=== PATIENT | female | born 1985 | race Caucasian/White ===

== ENCOUNTER → 2018-10-08 11:04 | Outpatient (CLI) | payer OTHER, SELFPAY ==
--- NOTE | 2018-10-08 | DI.MG.S_ITS ---
BILATERAL DIGITAL SCREENING MAMMOGRAM 3D/2D WITH CAD: 10/08/2018 CLINICAL: Family history of breast cancer. Routine screening. Baseline exam. No prior exams were available for comparison. The tissue of both breasts is extremely dense, which lowers the sensitivity of mammography. Current study was also evaluated with a Computer Aided Detection (CAD) system. No significant masses, calcifications, or other findings are seen in either breast. IMPRESSION: NEGATIVE There is no mammographic evidence of malignancy. A 1 year screening mammogram is recommended. This exam was interpreted at Station ID: [id number]. NOTE: For mammograms, a report in lay terms will be sent to the patient. Approximately 15% of breast malignancies will not be visualized mammographically. In the management of a palpable breast mass, a negative mammogram must not discourage biopsy of a clinically suspicious lesion. Electronically Signed By: Yefri garcia/pamella:10/08/2018 18:46:28 letter sent: Normal Exam ACR BI-RADS Category 1: Negative 3341F
== END ==
PROVIDERS: PCP Internal Medicine; Visit Provider Internal Medicine
DX: Z12.31 Encounter for screening mammogram for malignant neoplasm of breast (principal); Z80.3 Family history of malignant neoplasm of breast
CPT/HCPCS: 77063; 77067

== ENCOUNTER → 2018-12-31 09:07 | Outpatient (CLI) | payer OTHER, SELFPAY ==
[2018-12-31 09:34] LABS: Add Manual Diff / Slide Review NO; Basophils Absolute Auto 0 /uL (0-100); Basophils Percent Auto 0.5 % (0-2); Eosinophils Absolute Auto 200 /uL (0-450); Eosinophils Percent Auto 4.1 % (2-4); Hematocrit 38.4 % (36-46); Hemoglobin 12.9 g/dL (12.0-16.0); Lymphocytes Absolute Auto 1800 /uL (1100-4500); Lymphocytes Percent Auto 30.3 % (25-40); Mean Corpuscular HGB Conc 33.5 % (30-36); Mean Corpuscular Hemoglobin 29.7 PG (26-34); Mean Corpuscular Volume 88.5 fL (80-100); Monocytes Absolute Auto 400 /uL (0-900); Monocytes Percent Auto 6.3 % (3-14); Neutrophils Absolute Auto 3500 /uL (1500-7000); Neutrophils Percent Auto 58.8 % (50-75); Platelet Count 182 X10^3/uL (150-400); Red Blood Cell Count 4.34 X10^6/uL (4.0-5.2); Red Cell Distribution Width 12.9 % (11.6-14.8); White Blood Cell Count 5.9 X10^3/uL (4.5-11.0)
[2018-12-31 10:04] LABS: Alanine Aminotransferase 44 IU/L (9-52); Albumin 4.5 g/dL (3.5-5.0); Albumin Globulin Ratio 1.6 (1.0-2.8); Alkaline Phosphatase 62 U/L (38-126); Aspartate Aminotransferase 36 IU/L (14-36); BUN Creatinine Ratio 21.4 (6-22); Bilirubin Total 1.6 mg/dL (0.2-1.3); Blood Urea Nitrogen 15 mg/dL (7-17); Calcium 9.6 mg/dL (8.4-10.2); Carbon Dioxide 32 mmol/L (22-32); Chloride 100 mmol/L (98-107); Cholesterol 155 mg/dL (140-199); Estimated Glomerular Filt Rate > 60.0 mL/min (>60); Globulin 2.8 g/dL (1.7-4.1); Glucose 93 mg/dL (70-100); HDL Cholesterol 59 mg/dL (40-60); HEMOLYSIS < 15 (0-50); LDL Cholesterol Calculated 86 mg/dL (<100); Potassium 4.3 mmol/L (3.4-5.1); Sodium 139 mmol/L (137-145); Total Protein 7.3 g/dL (6.3-8.2); Triglycerides 48 mg/dL (35-150)
[2018-12-31 10:37] LABS: Ferritin 10.2 ng/mL (6.27-137)
[2018-12-31 10:40] LABS: Free T3, Triiodothyronine Free 3.55 pg/mL (2.77-5.27); Free T4, Direct Thyroxine 0.72 ng/dL (0.78-2.19)
[2018-12-31 10:53] LABS: Thyroid Stimulating Hormone 1.39 uIU/mL (0.47-4.68)
[2019-01-04 14:53] LABS: Thyroid Peroxidase Antibodies 3 IU/mL (< 9)
== END ==
PROVIDERS: PCP Internal Medicine; Visit Provider Naturopath
DX: Z00.00 Encounter for general adult medical examination without abnormal findings (principal); N92.4 Excessive bleeding in the premenopausal period; R53.83 Other fatigue
CPT/HCPCS: 36415; 80053; 80061; 82728; 84439; 84443; 84481; 85025; 86376

== ENCOUNTER → 2019-08-19 09:27 | Outpatient (CLI) | payer OTHER, SELFPAY ==
[2019-08-19 10:27] LABS: Add Manual Diff / Slide Review NO; Basophils Absolute Auto 0 /uL (0-100); Basophils Percent Auto 0.5 % (0-2); Eosinophils Absolute Auto 200 /uL (0-450); Eosinophils Percent Auto 3.4 % (2-4); Hematocrit 38.7 % (36-46); Lymphocytes Absolute Auto 1500 /uL (1100-4500); Mean Corpuscular HGB Conc 33.7 % (30-36); Mean Corpuscular Hemoglobin 29.6 PG (26-34); Mean Corpuscular Volume 87.7 fL (80-100); Monocytes Absolute Auto 400 /uL (0-900); Monocytes Percent Auto 7.7 % (3-14); Neutrophils Absolute Auto 3200 /uL (1500-7000); Neutrophils Percent Auto 60.4 % (50-75); Platelet Count 169 X10^3/uL (150-400); Red Blood Cell Count 4.42 X10^6/uL (4.0-5.2); White Blood Cell Count 5.3 X10^3/uL (4.5-11.0)
[2019-08-19 11:01] LABS: Alanine Aminotransferase 27 IU/L (<35); Albumin 4.9 g/dL (3.5-5.0); Albumin Globulin Ratio 1.7 (1.0-2.8); Alkaline Phosphatase 57 U/L (38-126); Aspartate Aminotransferase 32 IU/L (14-36); BUN Creatinine Ratio 21.4 (6-22); Bilirubin Total 1.2 mg/dL (0.2-1.3); Blood Urea Nitrogen 15 mg/dL (7-17); Calcium 9.8 mg/dL (8.4-10.2); Carbon Dioxide 25 mmol/L (22-32); Chloride 105 mmol/L (98-107); Cholesterol 151 mg/dL (140-199); Estimated Glomerular Filt Rate > 60.0 mL/min (>60); Globulin 2.9 g/dL (1.7-4.1); Glucose 92 mg/dL (70-100); HDL Cholesterol 64 mg/dL (40-60); HEMOLYSIS < 15 (0-50); LDL Cholesterol Calculated 78 mg/dL (<100); Potassium 4.6 mmol/L (3.4-5.1); Sodium 142 mmol/L (137-145); Total Protein 7.8 g/dL (6.3-8.2); Triglycerides 44 mg/dL (35-150); VLDL Cholesterol Calculated 9 mg/dL (2-30)
[2019-08-19 11:30] LABS: TSH w/ Reflex to FT4 1.37 uIU/mL (0.47-4.68)
== END ==
PROVIDERS: PCP Internal Medicine; Visit Provider Internal Medicine
DX: Z13.0 Encounter for screening for diseases of the blood and blood-forming organs and certain disorders involving the immune mechanism (principal); Z13.220 Encounter for screening for lipoid disorders; Z13.29 Encounter for screening for other suspected endocrine disorder
CPT/HCPCS: 36415; 80053; 80061; 84443; 85025

== ENCOUNTER → 2020-09-27 07:41 | Outpatient (CLI) | payer OTHER, SELFPAY ==
[2020-09-27] MEDS: COVID-19 VACC, Ad26(JANSSEN)/PF 0.5 ML IM (07:54)
== END ==
PROVIDERS: PCP Internal Medicine; Visit Provider Internal Medicine
DX: Z23 Encounter for immunization (principal)
CPT/HCPCS: 0031A; 91303

== ENCOUNTER 2020-10-18 19:02 | Emergency (ER) | payer OTHER, SELFPAY ==
[2020-10-18 19:09] VITALS: BP 127/79; PULSE 87; RESP 17; TEMP 37.1; O2SAT 100; BMI 20.9
[2020-10-18 19:46] LABS: Add Manual Diff / Slide Review NO; Basophils Absolute Auto 0 /uL (0-100); Basophils Percent Auto 0.4 % (0-2); Eosinophils Absolute Auto 200 /uL (0-450); Hemoglobin 12.6 g/dL (12.0-16.0); INR 1.1 (0.9-1.3); Lymphocytes Absolute Auto 2000 /uL (1100-4500); Lymphocytes Percent Auto 21.7 % (25-40); Mean Corpuscular HGB Conc 32.3 % (30-36); Mean Corpuscular Hemoglobin 28.6 PG (26-34); Mean Corpuscular Volume 88.6 fL (80-100); Monocytes Absolute Auto 500 /uL (0-900); Monocytes Percent Auto 6.1 % (3-14); Neutrophils Absolute Auto 6300 /uL (1500-7000); Neutrophils Percent Auto 69.8 % (50-75); Platelet Count 196 X10^3/uL (150-400); Prothrombin Time 12.6 SECONDS (10.1-12.7); Red Cell Distribution Width 14.2 % (11.6-14.8)
[2020-10-18 19:49] LABS: PTT Partial Thromboplastin Tim 32 SECONDS (26.4-36.2)
[2020-10-18 19:51] LABS: Alanine Aminotransferase 23 IU/L (<35); Albumin 4.6 g/dL (3.5-5.0); Albumin Globulin Ratio 1.6 (1.0-2.8); Alkaline Phosphatase 67 U/L (38-126); Aspartate Aminotransferase 30 IU/L (14-36); BUN Creatinine Ratio 19.4 (6-22); Bilirubin Total 0.8 mg/dL (0.2-1.3); Blood Urea Nitrogen 14 mg/dL (7-17); Calcium 9.3 mg/dL (8.4-10.2); Carbon Dioxide 27 mmol/L (22-32); Chloride 106 mmol/L (98-107); Estimated Glomerular Filt Rate > 60.0 mL/min (>60); Globulin 2.9 g/dL (1.7-4.1); Glucose 113 mg/dL (70-100); HEMOLYSIS < 15 (0-50); Lipase 158 U/L (23-300); Potassium 3.3 mmol/L (3.4-5.1); Sodium 142 mmol/L (137-145); Total Protein 7.5 g/dL (6.3-8.2)
--- NOTE | 2020-10-18 20:27 | ED_ITS ---
HPI - Abdominal Pain General Chief Complaint: Abdominal Pain Stated Complaint: upper abdominal pain Time Seen by Provider: 10/18/20 20:23 Source: patient Mode of arrival: Ambulatory Limitations: no limitations History of Present Illness HPI narrative: 35-year-old female with 2 weeks of abdominal pain that is been wa ashley and waning. She will describes as cramping. Patient has been afebrile. She has had nausea but no vomiting. Today's episode was worsened when she had a bagel with cream cheese. Patient states she has had diarrhea intermittently but no mucus, blood or discoloration. Patient denies any vaginal discharge. She is currently on her menses. She denies any urinary symptoms such as frequency, d ysuria urgency. She has a history of migraines she takes rizatriptan and Zofran. Patient denies any prior surgeries. No allergies to medications. She states she had a presumed ulcer and was on a PPI and altered her diet in the past. This feels somewhat different than that episode. Related Data Home Medications Medication Instructions Recorded Confirmed rizatriptan 10 mg PO PRN 10/18/20 Previous Rx's Medication Instructions Recorded meloxicam [Mobic] 7.5 mg PO BID #20 tab 10/18/20 pantoprazole [Protonix] 40 mg PO DAILY #20 tab 10/18/20 Allergies Allergy/AdvReac Type Severity Reaction Status Date / Time No Known Drug Allergies Allergy Verified 10/18/20 19:13 Review of Systems Review of Systems ROS Unobtainable: All systems reviewed & are unremarkable except as noted in HPI and below Patient History Social History Smoking Status: Never smoker Smoking Status: Never smoker alcohol intake frequency: a few times a week Substance Use Type: does not use Exam Narrative Exam Narrative: GENERAL: Alert and oriented x three, thin, well-appearing female in mild distress. HEENT: Head normocephalic, atraumatic, EOMI, pupils reactive, face symmetric, moist mucous membranes NECK: Supple, full range of motion CARDIOVASCULAR: Regular rate and rhythm without murmurs, rubs or gallops. RESPIRATORY: Breath sounds equal bilaterally, no wheezes rales or rhonchi. ABDOMEN: Soft, mild to moderate epigastric tenderness. Normoactive bowel sounds all 4 quadrants. No guarding or rebound, rigidity, no mass : No CVA tenderness EXTREMITIES: Normal range of motion, no clubbing or edema. Neurovascularly intact NEUROLOGICAL: Cranial nerves II through XII grossly intact. Moving all extremities SKIN: Warm, dry, no petechiae, no rashes or lesions. Initial Vital Signs Initial Vital Signs: Vital Signs Temperature 98.8 F 10/18/20 19:09 Pulse Rate 87 10/18/20 19:09 Respiratory Rate 17 10/18/20 19:09 Blood Pressure 127/79 10/18/20 19:09 Pulse Oximetry 100 10/18/20 19:09 Course Orders Ordered: ED Orders 10/18/20 19:10 EKG-12 Lead Stat 10/18/20 19:20 Complete Blood Count AUTO DIFF Stat Comprehensive Metabolic Panel Stat Lipase Stat Partial Thromboplastin Time Stat Prothrombin Time INR Stat 10/18/20 20:32 US abdomen limited Stat Discontinued Medications Sodium Chloride (Normal Saline 0.9%) 1,000 mls @ 150 mls/hr IV CONT SELENA Last Admin: 10/18/20 20:52 Dose: Not Given Documented by: DESMOND Sodium Chloride (Normal Saline 0.9%) 1,000 mls @ 1,000 mls/hr IV BOLUS ONE Stop: 10/18/20 21:31 Last Infusion: 10/18/20 22:19 Dose: 0 mls/hr Documented by: Admin: 10/18/20 20:52 Dose: 1,000 mls/hr Documented by: DESMOND Ketorolac Tromethamine (Ketorolac 60 Mg/2 Ml Vial) 15 mg IV NOW ONE Stop: 10/18/20 20:33 Last Admin: 10/18/20 20:51 Dose: 15 mg Documented by: DESMOND Reevaluation(s) Time: 22:12 Vital Signs Vital signs: Vital Signs - 8 hr 10/18/20 19:09 10/18/20 22:14 Temperature 98.8 F Pulse Rate 87 75 Respiratory Rate 17 18 Blood Pressure 127/79 109/69 Pulse Oximetry 100 100 MDM - Abdominal Pain Lab Data Attestation: I reviewed the patient's lab results. Result diagrams: 10/18/20 19:20 10/18/20 19:20 Labs: Lab Results 04/01/21 04/01/21 04/01/21 Range/Units 19:20 19:20 19:20 WBC 9.0 (4.5-11.0) X10^3/uL RBC 4.40 (4.0-5.2) X10^6/uL Hgb 12.6 (12.0-16.0) g/dL Hct 39.0 (36-46) % MCV 88.6 (80-100) fL MCH 28.6 (26-34) PG MCHC 32.3 (30-36) % RDW 14.2 (11.6-14.8) % Plt Count 196 (150-400) X10^3/uL Neut % (Auto) 69.8 (50-75) % Lymph % (Auto) 21.7 L (25-40) % [place] % (Auto) 6.1 (3-14) % Eos % (Auto) 2.0 (2-4) % Baso % (Auto) 0.4 (0-2) % Neut # (Auto) 6300 (2907-8083) /uL Lymph # (Auto) 2000 (0244-5925) /uL [place] # (Auto) 500 (0-900) /uL Eos # (Auto) 200 (0-450) /uL Baso # (Auto) 0 (0-100) /uL PT 12.6 (10.1-12.7) SECONDS INR 1.1 (0.9-1.3) APTT 32 (26.4-36.2) SECONDS Sodium 142 (137-145) mmol/L Potassium 3.3 L (3.4-5.1) mmol/L Chloride 106 (98-107) mmol/L Carbon Dioxide 27 (22-32) mmol/L BUN 14 (7-17) mg/dL Creatinine 0.72 (0.52-1.04) mg/dL Estimated GFR > 60.0 (>60) mL/min BUN/Creatinine Ratio 19.4 (6-22) Glucose 113 H (70-100) mg/dL Calcium 9.3 (8.4-10.2) mg/dL Total Bilirubin 0.8 (0.2-1.3) mg/dL AST 30 (14-36) IU/L ALT 23 (<35) IU/L Alkaline Phosphatase 67 (38-126) U/L Total Protein 7.5 (6.3-8.2) g/dL Albumin 4.6 (3.5-5.0) g/dL Globulin 2.9 (1.7-4.1) g/dL Albumin/Globulin Ratio 1.6 (1.0-2.8) Lipase 158 (23-300) U/L Point of care testing: Urine Dip Bedside Urine Glucose Negative Bedside Urine Bilirubin - Negative Bedside Urine Ketone +/- 5 Urine Specific [place] 1.030 Bedside Urine Occult Blood +++ Bedside Urine pH 6 Bedside Urine Protein +/- 15 Bedside Urine Urobilinogen - Negative Bedside Urine Nitrite - Negative Bedside Urine Leukocytes - Negative Esterase Imaging Data US - abdomen: Radiologist's Impression: Concetta Starks 35 F 1985 [address] [address] ReportSigned Patient: Concetta Starks DMR#: [id number]: 1985Acct:[id number]/Sex: 35 / FDate of Service: 10/18/20Loc: EDAccession Number: [id number] Procedure: US abdomen limited Ordering Provider: Ann-Marie Toussaint D.O. PROCEDURE: US ABDOMEN LIMITED INDICATIONS: EPIGASTRIC PAIN X 2 WEEKS TECHNIQUE: Real-time focused scanning was performed of the abdomen, with image documentation. COMPARISON: None. FINDINGS: Liver is normal in size and homogeneous echotexture. Gallbladder is sonographically normal. No gallstones. No gallbladder wall thickening. No pericholecystic fluid. No sonographic Butler sign. Biliary tree is nondilated. Common bile duct measures 2.4 millimeters. Pancreas is sonographically normal. IMPRESSION: No sonographic evidence of cholelithiasis or cholecystitis. Dictated by: Jessy Burch MD, PhD on 10/18/2020 at 21:21 Approved by: Jessy Burch MD, PhD on 10/18/2020 at 21:21 ECG Data Attestation: I personally reviewed and interpreted this ECG as follows: Interpretation: Rate of 82, UT 136 QRS is 76 QTC 455. Nonspecific change. Patient has what appears to be some motion artifact but does appear to be sinus rhythm. MDM Narrative Medical decision making narrative: 35 year old female with abdominal pain for several weeks that is worsening today. Patient's labs are reassuring, patient has a very mild hypokalemia, ultrasound shows no acute process. Patient does davison ve a history of ulcers. We discussed that this may be related but there is potential for other causes as well. Patient did find Toradol helpful today. Was given a prescription for meloxicam although this could worsen any ulcers or gastritis. We also discussed washing for any other changes such is blood in stool, fevers or other concerning signs. There is always potential for colitis or other cause of her symptoms. Patient was encouraged to follow up with primary care. Discharge Plan Departure Patient Disposition: Home Clinical Impression: Abdominal pain Instructions: Acute Abdominal Pain Activity Restrictions/Additional Instructions: Follow up with your physician this week for recheck. We discussed with your physician they may wish to follow up with EGD and/or colonoscopy if you continued to have symptoms. You may continue with a Protonix or Nexium 40 mg daily. Mobic prescription to [facility] in [place]. You may take medication as prescribed. Please return for fevers, worsening abdominal pain, persistent vomiting, black or bloody stools, lightheadedness or passing out, new chest pain shortness of breath or other new or concerning symptoms. Prescriptions: New meloxicam [Mobic] 7.5 mg tablet 7.5 mg PO BID Qty: 20 RF: 0 pantoprazole [Protonix] 40 mg tablet,delayed release (DR/EC) 40 mg PO DAILY Qty: 20 RF: 0 No Action rizatriptan 10 mg tablet,disintegrating 10 mg PO PRN (Reason: Migraine Headache) RF: 0 Referrals: Brook Carter ARNP [Primary Care Provider] -
--- NOTE | 2020-10-18 20:32 | DI.US.S_ITS ---
PROCEDURE: US ABDOMEN LIMITED INDICATIONS: EPIGASTRIC PAIN X 2 WEEKS TECHNIQUE: Real-time focused scanning was performed of the abdomen, with image documentation. COMPARISON: None. FINDINGS: Liver is normal in size and homogeneous echotexture. Gallbladder is sonographically normal. No gallstones. No gallbladder wall thickening. No pericholecystic fluid. No sonographic Butler sign. Biliary tree is nondilated. Common bile duct measures 2.4 millimeters. Pancreas is sonographically normal. IMPRESSION: No sonographic evidence of cholelithiasis or cholecystitis. Dictated by: Jessy Burch MD, PhD on 10/18/2020 at 21:21 Approved by: Jessy Burch MD, PhD on 10/18/2020 at 21:21
[2020-10-18] MEDS: KETOROLAC 60 MG/2 ML VIAL 15 MG IV (20:51)
[2020-10-18] MEDS: SODIUM CHLORIDE 0.9% 1,000 ML 1000 ML IV (20:52)
[2020-10-18 22:14] VITALS: BP 109/69; PULSE 75; RESP 18; O2SAT 100
== END 2020-10-18 22:19 | disposition home or self-care (01) ==
PROVIDERS: Emergency Provider Emergency Medicine; PCP Internal Medicine
DX: R10.9 Unspecified abdominal pain (principal)
CPT/HCPCS: 36415; 76705; 80053; 81003; 83690; 85025; 85610; 85730; 93005; 96361; 96374; 99284; J1885

== ENCOUNTER → 2021-02-27 09:27 | Outpatient (CLI) | payer OTHER, SELFPAY ==
[2021-02-27 11:32] LABS: COVID19 -Nasal RAPID Negative (Negative)
== END ==
PROVIDERS: PCP Internal Medicine; Visit Provider Student in an Organized Health Care Education/Training Program
DX: J02.9 Acute pharyngitis, unspecified (principal); Z20.822 Contact with and (suspected) exposure to COVID-19
CPT/HCPCS: 87635

== ENCOUNTER → 2021-05-10 16:28 | Outpatient (CLI) | payer OTHER, SELFPAY ==
[2021-05-12 11:31] LABS: COVID19 Sendout Not Detected (Not Detect)
== END ==
PROVIDERS: PCP Internal Medicine; Visit Provider Nurse Practitioner
DX: Z20.822 Contact with and (suspected) exposure to COVID-19 (principal)
CPT/HCPCS: 87635

== ENCOUNTER → 2021-06-05 17:51 | Outpatient (CLI) | payer OTHER, SELFPAY ==
[2021-06-05 19:09] LABS: COVID19 -Nasal RAPID Negative (Negative)
== END ==
PROVIDERS: PCP Internal Medicine; Referring Provider Nurse Practitioner Family; Visit Provider Nurse Practitioner Family
DX: Z20.822 Contact with and (suspected) exposure to COVID-19 (principal)
CPT/HCPCS: 87635

== ENCOUNTER → 2021-11-04 07:54 | Outpatient (CLI) | payer OTHER, SELFPAY ==
--- NOTE | 2021-11-04 | DI.MG.S_ITS ---
BILATERAL DIGITAL SCREENING MAMMOGRAM 3D/2D WITH CAD: 11/04/2021 CLINICAL: Routine screening. Family history of breast cancer. Comparison is made to exam dated: 10/08/2018 mammogram - [facility]. The tissue of both breasts is extremely dense, which lowers the sensitivity of mammography. Current study was also evaluated with a Computer Aided Detection (CAD) system. There are grouped calcifications in the left breast at 12 o'clock middle depth. No other significant masses, calcifications, or other findings are seen in either breast. There has been no significant interval change. IMPRESSION: INCOMPLETE: NEEDS ADDITIONAL IMAGING EVALUATION The grouped calcifications in the left breast are indeterminate. Spot magnification views are recommended. This exam was interpreted at Station ID: [id number]. NOTE: For mammograms, a report in lay terms will be sent to the patient. Approximately 15% of breast malignancies will not be visualized mammographically. In the management of a palpable breast mass, a negative mammogram must not discourage biopsy of a clinically suspicious lesion. Electronically Signed By: Yenfier mares/:11/04/2021 12:57:22 letter sent: Additional Imaging Needed ACR BI-RADS Category 0: Incomplete 3340F
== END ==
PROVIDERS: PCP Internal Medicine; Referring Provider Internal Medicine; Visit Provider Internal Medicine
DX: Z12.31 Encounter for screening mammogram for malignant neoplasm of breast (principal); Z80.3 Family history of malignant neoplasm of breast
CPT/HCPCS: 77063; 77067

== ENCOUNTER → 2021-12-11 07:52 | Outpatient (CLI) | payer OTHER, SELFPAY ==
--- NOTE | 2021-12-11 | DI.MRI.S_ITS ---
BREAST MRI OF BOTH BREASTS: 12/11/2021 CLINICAL: Abnormal Left Mammogram. PROCEDURE: MR BREAST BI WO/W CON INDICATIONS: ABNORMAL LEFT BREAST MAMMOGRAM TECHNIQUE: The patient was placed prone in a dedicated breast imaging coil. Precontrast axial STIR and 3D FLASH without fat saturation sequences were obtained. Both before and after bolus injection of contrast, sequential 1-minute axial 3D FLASH with fat saturation sequences for 3 time points, with subtraction images and maximum intensity projections (MIP's) generated. Delayed sagittal FLASH images with fat saturation were also obtained. CONTRAST: 20 cc Prohance IV contrast. Computer-aided detection, including computer algorithm analysis of MRI image data for lesion detection and characterization, pharmacokinetic analysis, with further physician review for interpretation, was performed. COMPARISON: [facility], MG, MG ADDITIONAL VIEWS DIGITAL BREAST TOMOSYNTHESIS LEFT, 11/08/2021, 13:01. [facility], , MM SCREENING MAMMO BI, 11/04/2021, 8:07. [facility], , MM SCREENING MAMMO BI, 10/08/2018, 11:54. FINDINGS: Image quality: Excellent. There is moderate background parenchymal enhancement. Right breast: No mass or suspicious enhancement. A few enhancing foci. Left breast: No mass or suspicious enhancement. A few enhancing foci. Miscellaneous: No enlarged lymph nodes. IMPRESSION: BENIGN No mass or suspicious enhancement demonstrated. No enlarged lymph nodes. BIRADS 2. Future imaging is recommended as follows: 05/10/2022 follow-up left mammogram for grouped punctate calcifications. COMMENT: The imaging literature indicates that a negative contrast breast MRI examination has a high sensitivity and a moderate specificity for detecting and excluding invasive carcinomas to a detection threshold of 3-5 mm; nonetheless, appropriate clinical and mammographic follow-up are recommended. MRI is not sensitive for detecting DCIS (ductal carcinoma in situ) and may not detect large invasive neoplasms that show only minimal enhancement such as mucinous carcinoma. If there are suspicious calcifications or clinically worrisome palpable masses, then biopsy should still be considered. Invasive neoplasms can be hidden by co-existent and benign enhancement caused by mastitis, hormone therapy effects, radiation therapy, , and recent biopsy or surgery. False positive examinations can occur in a number of circumstances, including breasts that have recently been subject to invasive procedures and those that contain atypical ductal hyperplasia, hormonally stimulated glandular tissue, fat necrosis, or radial scars. Dictated by: Waldo Power M.D. on 12/12/2021 at 13:39 This exam was interpreted at Station ID: [id number]. Electronically Signed By: Waldo Power M.D. slc/:12/12/2021 13:44:45 letter sent: Normal Exam ACR BI-RADS Category 2: Benign Finding(s) 3342F
== END ==
PROVIDERS: PCP Internal Medicine; Referring Provider Internal Medicine; Visit Provider Internal Medicine
DX: R92.8 Other abnormal and inconclusive findings on diagnostic imaging of breast (principal)
CPT/HCPCS: 77049; A9579

== ENCOUNTER 2022-01-03 13:58 | Emergency (ER) | payer OTHER, SELFPAY ==
[2022-01-03 14:28] VITALS: BP 140/92; PULSE 77; RESP 16; TEMP 36.9; O2SAT 99; BMI 20.3
--- NOTE | 2022-01-03 14:33 | DI.RAD.S_ITS ---
PROCEDURE: XR FOOT LT MIN 3V INDICATIONS: pain swelling, dropped heavy object on foot TECHNIQUE: 3 views of the foot were acquired. COMPARISON: None. FINDINGS: Bones: No fractures or dislocations. No suspicious bony lesions. Soft tissues: There is dorsal soft tissue swelling. No tibiotalar joint effusion. Achilles tendon appears normal. IMPRESSION: Dorsal soft tissue swelling without underlying bony abnormality. If pain persists, followup imaging in 5-7 days is recommended to exclude occult fracture. Dictated by: Yenifer Azul M.D. on 01/03/2022 at 14:43 Approved by: Yenifer Azul M.D. on 01/03/2022 at 14:44
[2022-01-03 15:34] VITALS: BP 110/74; PULSE 77; O2SAT 100
--- NOTE | 2022-01-03 15:37 | PC.NURSE ---
Took 600mg ibuprofen at 1400
--- NOTE | 2022-01-03 16:55 | ED_ITS ---
HPI - Extremity Injury (Lower) <JESS Ibrahim - Last Filed: 01/03/22 17:00> General Chief Complaint: Extremity Injury, Lower Stated Complaint: dropped furniture on lt foot Time Seen by Provider: 01/03/22 16:16 Mode of arrival: Wheelchair History of Present Illness HPI Narrative: This is a 36-year-old female who presents emergency department after dropping a heavy chair on the top of her left foot just prior to arrival with swelling and pain to the dorsum of her midfoot. Patient states that it swelled up immediately and she has pain across the midfoot, denies any heel pain, states that she is able to wiggle her toes although it is painful in the midfoot. She denies any open wound, denies any allergies to medications, states that she can bear weight but it is quite painful. She denies any numbness or tingling, denies any ankle pain. Related Data Home Medications Medication Instructions Recorded Confirmed rizatriptan 10 mg disintegrating 10 mg PO PRN Migraine Headache 10/18/20 07/03/21 tablet Previous Rx's Medication Instructions Recorded meloxicam 7.5 mg tablet (Mobic) 7.5 mg PO BID #20 tabs 10/18/20 pantoprazole 40 mg tablet,delayed 40 mg PO DAILY #20 tabs 10/18/20 release (Protonix) mupirocin 2 % topical ointment 1 applic topical TID #15 grams 05/12/21 diclofenac sodium 1 % topical gel 2 g topical QID PRN foot pain #100 01/03/22 grams meloxicam 7.5 mg tablet 7.5 mg PO DAILY PRN pain #20 tabs 01/03/22 Allergies Allergy/AdvReac Type Severity Reaction Status Date / Time No Known Drug Allergies Allergy Verified 05/12/21 15:25 Review of Systems <JESS Ibrahim - Last Filed: 01/03/22 17:00> Review of Systems Narrative: General: denies fever, chills, malaise, sweats, fatigue Head/Neck: denies headache, neck pain, dizziness Eyes: denies visual changes, eye pain Cardio: denies chest pain, palpitations, edema Respiratory: denies dyspnea, cough, orthopnea GI: denies abdominal pain, nausea, vomiting, or diarrhea : denies dysuria, hematuria, urinary retention, frequency or incontinence MSK: denies joint pain, muscle weakness, endorses left foot pain Skin: denies rash, itching, skin lesions or other Neuro: denies numbness, tingling Patient History <JESS Ibrahim - Last Filed: 01/03/22 17:00> Medical History Eczema of external ear Social History Smoking Status: Never smoker Smoking Status: Never smoker alcohol intake frequency: a few times a week Substance Use Type: does not use Exam <JESS Ibrahim - Last Filed: 01/03/22 17:00> Narrative Exam Narrative: Independently reviewed vitals signs and nursing notes. General: Awake, alert, nontoxic, no cardiorespiratory distress Head/Neck: Atraumatic, neck supple Eyes: EOMI, conjunctiva normal Nose: nares patent, no rhinorrhea Mouth/Throat: moist mucus membranes, posterior pharynx without erythema or lesion Cardio: Regular rate and rhythm, no peripheral edema Respiratory: respirations unlabored without wheezing, stridor, or rales. No retractions, hypoxia or tachypnea GI: Abdomen soft, nontender to palpation x4 quadrants, no guarding or rebound tenderness MSK: Moves all extremities, neurovascularly intact, range of motion without deficit, dorsum of left foot with of moderate to large size hematoma, tender to palpation, no tenderness over proximal 5th metatarsal, Achilles, ankle joint, distal metatarsals or proximal metatarsals, no plantar ecchymosis, ecchymosis only on the dorsum of her midfoot, range of motion intact without deficit, PT 2+, DP difficult to assess on left foot due to swelling, cap refills brisk Skin: Normal capillary refill, no rash Neuro: Normal speech and cognition, normal gait Initial Vital Signs Initial Vital Signs: Vital Signs Temperature 98.4 F 01/03/22 14:28 Pulse Rate 77 01/03/22 14:28 Respiratory Rate 16 01/03/22 14:28 Blood Pressure 140/92 H 01/03/22 14:28 Pulse Oximetry 99 01/03/22 14:28 Oxygen Delivery Method 01/03/22 14:28 <Ann-Marie Toussaint DO - Last Filed: 01/05/22 12:20> Initial Vital Signs Initial Vital Signs: Vital Signs Temperature 98.4 F 01/03/22 14:28 Pulse Rate 77 01/03/22 14:28 Respiratory Rate 16 01/03/22 14:28 Blood Pressure 140/92 H 01/03/22 14:28 Pulse Oximetry 99 01/03/22 14:28 Oxygen Delivery Method 01/03/22 14:28 Procedures <JESS Ibrahim - Last Filed: 01/03/22 17:00> Orthopedic Splinting/Casting Injury #1: Side: left Lower Extremity Injury Location: foot Lower Extremity Immobilizer: post-op shoe Other Orthopedic Equipment: crutches Post splinting neuro exam: intact and no change Post splinting vascular exam: intact Placed by: Nursing Course <JESS Ibrahim - Last Filed: 01/03/22 17:00> Orders Ordered: ED Orders 01/03/22 14:33 XR foot LT min 3V Stat Vital Signs Vital signs: Vital Signs - 8 hr 01/03/22 14:28 Temperature 98.4 F Pulse Rate 77 Respiratory Rate 16 Blood Pressure 140/92 H Pulse Oximetry 99 Oxygen Delivery Method Room Air <Ann-Marie Toussaint DO - Last Filed: 01/05/22 12:20> Orders Ordered: ED Orders 01/03/22 14:33 XR foot LT min 3V Stat Vital Signs Vital signs: Vital Signs - 8 hr 01/03/22 14:28 Temperature 98.4 F Pulse Rate 77 Respiratory Rate 16 Blood Pressure 140/92 H Pulse Oximetry 99 Oxygen Delivery Method Room Air MDM - Extremity Injury (Lower) <JESS Ibrahim - Last Filed: 01/03/22 17:00> Imaging Data Extremity x-ray #1: Radiologist's Impression: PROCEDURE:? XR FOOT LT MIN 3V ? INDICATIONS:? pain swelling, dropped heavy object on foot ? TECHNIQUE:? 3 views of the foot were acquired.? ? COMPARISON:? None. ? FINDINGS:? ? Bones:? No fractures or dislocations.? No suspicious bony lesions.? ? Soft tissues:? There is dorsal soft tissue swelling.? No tibiotalar joint effusion.? Achilles tendon appears normal.? ? ? IMPRESSION:? Dorsal soft tissue swelling without underlying bony abnormality. If pain persists, followup imaging in 5-7 days is recommended to exclude occult fracture. ? ? Dictated by: Yenifer Azul M.D. on 01/03/2022 at 14:43 ? ? Approved by: Yenifer Azul M.D. on 01/03/2022 at 14:44 ? MDM Narrative Medical decision making narrative: This is a 36-year-old female presents to emergency department for left foot pain after she dropped a heavy chair on the dorsum of her left midfoot. X-ray of her left foot shows dorsal soft tissue swelling without underlying bony abnormality. Patient did not have any tenderness over Achilles tendon, ankle joint, 5th metatarsal, or with ankle movement. She is neurovascularly intact, no plantar ecchymosis, large hematoma/edema to the dorsum of her midfoot. She was given a referral to Podiatry for follow-up, fitted in a postop shoe which she tolerated well and given crutches for weight-bearing as tolerated and follow up if pain is equivalent today in one week or if she is not getting any better. She is given strict return precautions. Patient is appropriate and amenable to discharge home. Vital signs are stable on repeat examination is unremarkable. Patient has been informed of results. Patient has been given strict return to ER precautions for any new or worsening symptoms. Patient understands to follow up closely with outpatient providers as instructed. Patient understands plan and agrees to discharge home. All questions and concerns answered at this time. Discharge Plan Departure Patient Disposition: Home Clinical Impression: Foot injury Qualifiers: Encounter type: initial encounter Laterality: left Qualified Code(s): S99.922A - Unspecified injury of left foot, initial encounter Instructions: Foot Fracture Activity Restrictions/Additional Instructions: *You have been diagnosed with a left dorsum midfoot injury from dropping a chair on it. Your x-ray does not show any signs of fracture. This does look quite painful and may take 1-2 weeks at least to heal. Please use meloxicam as needed for pain, Tylenol in addition to this, use ice frequently over the next 2-3 days and elevation as much as possible. You may use a compression dressing to help with swelling, snug socks, or equivalent while your out of bed. Please use the flat ortho shoe to help prevent bending of the midfoot with walking. You may use crutches to help off weight your foot because walking on it will be painful for the next few days. Please follow-up with Podiatry if you do not have any improvement after one week or if your pain/swelling start to get worse. You may develop some bruising on the bottom of your foot, this is normal as the blood is dependent and starts to settle. Thank you for trusting us with your care, sorry for the baby long wait, follow-up with Dr. Carter if you have any other concerns or need a referral to physical therapy. *What to do: *Please continue to take your regular medications as directed. [x ] New medication prescriptions sent to your pharmacy: [[facility] ] [ ] New medication written as a paper prescription [ ] No new medications given *Please follow up with your primary care provider in 2-3 days, call for an appointment. Let them know you were seen in the Emergency Department and that we asked that you be seen for follow-up. We will electronically transmit a record of today's note if your PCP is in our system *If you do not have a primary care provider please contact [phone] to establish care with one of the [facility] primary care providers. *Return to Emergency Department if you should have any new, worsening or concerning symptoms, such as [fever greater than 101F, chills, worsening pain, persistent vomiting or other bothersome symptoms] Prescriptions: New meloxicam 7.5 mg tablet 7.5 mg PO DAILY PRN (Reason: pain) Qty: 20 0RF diclofenac sodium 1 % gel 2 g topical QID PRN (Reason: foot pain) Qty: 100 0RF Rx Instructions: apply to single elbow, wrist or hand; for hand includes palm/fingers/back of hand No Action mupirocin 2 % ointment 1 applic topical TID Qty: 15 0RF rizatriptan 10 mg tablet,disintegrating 10 mg PO PRN (Reason: Migraine Headache) meloxicam [Mobic] 7.5 mg tablet 7.5 mg PO BID Qty: 20 0RF pantoprazole [Protonix] 40 mg tablet,delayed release (DR/EC) 40 mg PO DAILY Qty: 20 0RF Referrals: Brook Carter ARNP [Primary Care Provider] - Will Trujillo DPM [Physician] - Visit Report Forms: Patient Portal/API <Ann-Marie Toussaint DO - Last Filed: 01/05/22 12:20> Cosign ED Attending Shantelature Attestation: I was immediately available in the department for consultation. Documentation has been reviewed.
[2022-01-03 17:08] VITALS: BP 112/75; PULSE 68; O2SAT 99
== END 2022-01-03 17:09 | disposition home or self-care (01) ==
PROVIDERS: Emergency Provider Nurse Practitioner Critical Care Medicine; PCP Internal Medicine
DX: S99.922A Unspecified injury of left foot, initial encounter (principal); W22.8XXA Striking against or struck by other objects, initial encounter
CPT/HCPCS: 73630; 99282; 99283

== ENCOUNTER → 2022-01-21 15:10 | Outpatient (CLI) | payer OTHER, SELFPAY ==
--- NOTE | 2022-01-21 | DI.CT.S_ITS ---
PROCEDURE: CT KIDNEY URETER BLADDER (KUB) INDICATIONS: Gross hematuria/Urinary tract infection TECHNIQUE: Axial sections were acquired from the lung bases to the pubic symphysis. Coronal and sagittal reformats were performed. For radiation dose reduction, the following was used: automated exposure control, adjustment of mA and/or kV according to patient size. COMPARISON: None. FINDINGS: Image quality: Excellent. Lung bases: Unremarkable. Heart: No significant findings. URINARY: Right Kidney: No stones or hydronephrosis. Right Ureter: No hydroureter. Left Kidney: No stones or hydronephrosis. Left Ureter: No hydroureter. Bladder: The bladder is thin walled and partially fluid filled. ABDOMEN: Liver: Unremarkable. Gallbladder: Unremarkable. Biliary ducts: Unremarkable. Pancreas: Unremarkable. Spleen: Unremarkable. Adrenal Glands: Unremarkable. Stomach and Bowel: Stomach, small bowel loops, and colon are unremarkable. Liquid stool is present in the distal colon. The appendix is thin walled and gas filled. Peritoneum: No abnormal intraperitoneal fluid. No free air. Ventral Wall: No hernia. Abdominal Nodes: No enlarged retroperitoneal or mesenteric lymph nodes. Vessels: Aorta and inferior vena cava are normal in size. PELVIS: Pelvic Organs: A cervical cup is present. Pelvic Nodes: Unremarkable. Miscellaneous: No inguinal hernias are seen. There are likely bilateral pelvic phleboliths. Bones: Unremarkable. IMPRESSION: 1. No hydronephrosis, nephrolithiasis, hydroureter, or ureterolithiasis. No bladder stones visualized. Dictated by: Yenifer Azul M.D. on 01/21/2022 at 16:51 Approved by: Yenifer Azul M.D. on 01/21/2022 at 16:55
== END ==
PROVIDERS: PCP Internal Medicine; Referring Provider Internal Medicine; Visit Provider Internal Medicine
DX: R31.0 Gross hematuria (principal); N39.0 Urinary tract infection, site not specified
CPT/HCPCS: 74176

== ENCOUNTER → 2022-02-13 08:36 | Outpatient (CLI) | payer OTHER, SELFPAY ==
--- NOTE | 2022-02-13 08:57 | DI.CT.S_ITS ---
PROCEDURE: CT IVP INDICATIONS: Gross hematuria TECHNIQUE: Non-contrast images not obtained due to recent CT KUB. After the administration of intravenous contrast, 5 mm thick images acquired from the diaphragm to the symphysis pubis utilizing a split bolus technique. 2 mm thick coronal and sagittal reformats were then performed of the kidneys and ureters. For radiation dose reduction, the following was used: automated exposure control, adjustment of mA and/or kV according to patient size. COMPARISON: [facility], CT, CT KIDNEY URETER BLADDER (KUB), 01/21/2022, 15:13. FINDINGS: Image quality: Excellent. Lung bases: No pleural effusion. Urinary system: Both kidneys are unremarkable in size without hydronephrosis. No perinephric fat stranding. There is normal bilateral renal enhancement. Renal calyces appear normal in morphology when filled with contrast. Opacified portions of both ureters demonstrate normal caliber. Bladder wall thickness is normal. Other solid organs: Liver is normal in size and enhancement. Gallbladder is unremarkable. Biliary system is non dilated. Pancreas enhances normally. Spleen is normal in size and enhancement. No adrenal nodules. Peritoneum and bowel: Bowel loops demonstrate normal wall thickness and caliber. No substantial free fluid or air. Nodes and vessels: No retroperitoneal or mesenteric adenopathy by size criteria. Aorta and inferior vena cava are normal in size. Abdominal wall: No ventral hernias. Pelvis: No pathologic free pelvic fluid. No inguinal hernias or adenopathy. Bones: No suspicious bony lesions. No vertebral body compression fractures. IMPRESSION: No evidence of a solid renal mass or upper tract urothelial neoplasm. Dictated by: David Hill M.D. on 02/13/2022 at 9:50 Approved by: David Hill M.D. on 02/13/2022 at 10:06
== END ==
PROVIDERS: PCP Internal Medicine; Referring Provider Internal Medicine; Visit Provider Internal Medicine
DX: R31.0 Gross hematuria (principal); N39.0 Urinary tract infection, site not specified
CPT/HCPCS: 74178

== ENCOUNTER 2022-09-23 15:08 | Emergency (ER) | payer OTHER, SELFPAY ==
[2022-09-23 15:26] VITALS: BP 120/65; PULSE 83; RESP 16; TEMP 36.7; O2SAT 100; BMI 22.1
--- NOTE | 2022-09-23 17:58 | PC.NURSE ---
Pt seen and assessed by Hyma, PAC without RN involvment. Brief assessment on DC. Pt eager to leave. No DC vitals obtained. Pt AAOx3, ambulatory out of ED with steady gait
--- NOTE | 2022-09-23 20:05 | ED.BURNSMOKE ---
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 Patient states she was testing a new unit, plugged it in an when she tested she felt a huge shock in the left hand. Patient endorses the feeling of a light tingle or burn in the left 1st and 2nd digits. Patient denies any other symptoms. Patient denies chest pain, shortness of breath, lightheadedness, dizziness, syncope. Related Data Home Medications Medication Instructions Recorded Confirmed rizatriptan 10 mg disintegrating 10 mg PO PRN Migraine Headache 10/18/20 07/02/22 tablet ondansetron HCl 4 mg tablet 4 mg PO Q8H 04/24/22 07/02/22 Previous Rx's Medication Instructions Recorded meloxicam 7.5 mg tablet (Mobic) 7.5 mg PO BID #20 tabs 10/18/20 pantoprazole 40 mg tablet,delayed 40 mg PO DAILY #20 tabs 10/18/20 release (Protonix) mupirocin 2 % topical ointment 1 applic topical TID #15 grams 05/12/21 diclofenac sodium 1 % topical gel 2 g topical QID PRN foot pain #100 01/03/22 grams meloxicam 7.5 mg tablet 7.5 mg PO DAILY PRN pain #20 tabs 01/03/22 albuterol sulfate 90 mcg/actuation 2 puff inhalation Q4-6H PRN 07/02/22 aerosol inhaler shortness of breath or wheezing #6.7 grams Allergies Allergy/AdvReac Type Severity Reaction Status Date / Time No Known Drug Allergies Allergy Verified 07/02/22 17:50 Review of Systems <Orion Lee PA-C - Last Filed: 09/23/22 20:09> Review of Systems ROS Unobtainable: All systems reviewed & are unremarkable except as noted in HPI and below Constitutional Constitutional: Denies chills, Denies fatigue, Denies fever(s), Denies frequent falls, Denies lethargy and Denies weakness Eyes Eyes: Denies change in vision, Denies eye discharge, Denies irritation and Denies loss of vision ENT Ears, Nose, Mouth, and Throat: Denies change in voice, Denies dizziness, Denies neck pain, Denies sore throat and Denies throat swelling Cardiovascular Cardiovascular: Denies chest pain, Denies irregular heart rhythm, Denies lightheadedness, Denies palpitations, Denies dyspnea, Denies dyspnea on exertion and Denies orthopnea Respiratory Respiratory: Denies cough, Denies dyspnea, Denies dyspnea on exertion and Denies wheezing Gastrointestinal Gastrointestinal: Denies abdominal pain, Denies change in bowel habits, Denies diarrhea, Denies nausea and Denies vomiting Genitourinary Genitourinary: Denies hematuria, Denies flank pain, Denies urinary incontinence and Denies urinary urgency Musculoskeletal Musculoskeletal: Denies back pain, Denies muscle weakness, Denies neck pain, Denies numbness and Denies tingling Integumentary/Breasts Skin/Breast: Denies pruritus, Denies erythema, Denies rash and Denies wounds Comments: Electric shock to left hand. Neurologic Neurologic: Denies behavioral changes, Denies confusion, Denies dizziness, Denies frequent falls, Denies loss of vision, Denies numbness, Denies tingling and Denies weakness Psychiatric Psychiatric: Denies anxiety, Denies behavioral changes, Denies confusion, Denies depression, Denies homicidal ideation and Denies suicidal ideation Endocrine Endocrine: Denies fatigue, Denies flushing and Denies palpitations Hematologic/Lymphatic Hematologic/Lymphatic: Denies easy bruising Allergic/Immunologic Allergic/Immunologic: Denies urticaria, Denies throat swelling and Denies wheezing Patient History <Orion Lee PA-C - Last Filed: 09/23/22 20:09> Medical History Eczema of external ear Hematuria History of kidney stones Hx of migraines Family History Grandmother Cancer CAD (coronary artery disease) Father Hearing impairment Hyperlipidemia Hypertension Mother Hypertension Social History marital status: number of children: 2 Smoking Status: Never smoker alcohol intake: current caffeine: Yes Type(s) of exercise: walking, weight lifting and running frequency: 3-4 times per week duration: > 90 minutes/day Smoking Status: Never smoker alcohol intake frequency: a few times a week Substance Use Type: does not use Exam <Orion Lee PA-C - Last Filed: 09/23/22 20:09> Narrative Exam Narrative: Const General:?cooperative, healthy appearing and comfortable HENAK Head:?normal to inspection Ears:?hearing grossly normal bilaterally Nose:?external nose normal Face and sinus:?normal facial exam and sinuses nontender Mouth:?oral mucosae normal Throat:?posterior oropharynx normal Eyes General:?appearance normal, both eyes and all related structures Neck Neck:?normal visual inspection and no lymphadenopathy noted Resp Effort & Inspection:?normal respiratory effort Auscultation:?clear to auscultation bilaterally Cardio Rate:?regular rate Rhythm:?regular rhythm Integumentary No visible burn appreciated on digits 1 and 2 of the left hand where patient stated that she received the electric shock. There is full range of motion. Strength and sensation is intact. Patient is neurovascularly intact. Skin is completely intact, no streaking. Neuro General:?patient alert, patient awake and patient oriented x3 Initial Vital Signs Initial Vital Signs: Vital Signs Temperature 98.1 F 09/23/22 15:26 Pulse Rate 83 09/23/22 15:26 Respiratory Rate 16 09/23/22 15:26 Blood Pressure 120/65 09/23/22 15:26 Pulse Oximetry 100 09/23/22 15:26 Oxygen Delivery Method Room Air 09/23/22 15:26 <Jared Griffith MD - Last Filed: 09/30/22 08:27> Initial Vital Signs Initial Vital Signs: Vital Signs Temperature 98.1 F 09/23/22 15:26 Pulse Rate 83 09/23/22 15:26 Respiratory Rate 16 09/23/22 15:26 Blood Pressure 120/65 09/23/22 15:26 Pulse Oximetry 100 09/23/22 15:26 Oxygen Delivery Method Room Air 09/23/22 15:26 Course <Orion Lee PA-C - Last Filed: 09/23/22 20:09> Vital Signs Vital signs: Vital Signs - 8 hr 09/23/22 15:26 Temperature 98.1 F Pulse Rate 83 Respiratory Rate 16 Blood Pressure 120/65 Pulse Oximetry 100 Oxygen Delivery Method Room Air <Jared Griffith MD - Last Filed: 09/30/22 08:27> Vital Signs Vital signs: Vital Signs - 8 hr 09/23/22 15:26 Temperature 98.1 F Pulse Rate 83 Respiratory Rate 16 Blood Pressure 120/65 Pulse Oximetry 100 Oxygen Delivery Method Room Air MDM - Burn/Smoke Inhalation <Orion Lee PA-C - Last Filed: 09/23/22 20:09> MDM Narrative Medical decision making narrative: 37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 Physical exam and history were reviewed. There is no visible burn on the left hand, no streaks. There is full range of motion and strength and sensation is intact. Lungs are clear to auscultation and regular heart rate and rhythm. Patient appears well overall. ED return precautions were discussed with patient. Patient verbalized understanding. Medical records reviewed: Yes Discharge Plan Departure Patient Disposition: Home Clinical Impression: Electrical injury in adult Instructions: DI for Electrical [place] Activity Restrictions/Additional Instructions: Were evaluated in the ED today for an electrical injury sustained at work with a cautery device. Your physical exam is reassuring, you might have a very mild first-degree burn on the 2 fingers that were affected. There is no arrhythmias or abnormal lung sounds on auscultation. Return to the ED if you have any worsening symptoms. Prescriptions: No Action mupirocin 2 % ointment 1 applic topical TID Qty: 15 0RF albuterol sulfate 90 mcg/actuation HFA aerosol inhaler 2 puff inhalation Q4-6H PRN (Reason: shortness of breath or wheezing) Qty: 6.7 0RF rizatriptan 10 mg tablet,disintegrating 10 mg PO PRN (Reason: Migraine Headache) meloxicam [Mobic] 7.5 mg tablet 7.5 mg PO BID Qty: 20 0RF pantoprazole [Protonix] 40 mg tablet,delayed release (DR/EC) 40 mg PO DAILY Qty: 20 0RF meloxicam 7.5 mg tablet 7.5 mg PO DAILY PRN (Reason: pain) Qty: 20 0RF diclofenac sodium 1 % gel 2 g topical QID PRN (Reason: foot pain) Qty: 100 0RF Rx Instructions: apply to single elbow, wrist or hand; for hand includes palm/fingers/back of hand ondansetron HCl 4 mg tablet 4 mg PO Q8H Referrals: Brook Carter ARNP [Primary Care Provider] - Stand Alone Forms: Patient Portal/API <Jared Griffith MD - Last Filed: 09/30/22 08:27> Cosign ED Attending Cosignature Attestation: I was immediately available in the department for consultation. ?This documentation has been reviewed and I agree with assessment and plan. Supervised by Jared Griffith MD
== END 2022-09-23 17:59 | disposition home or self-care (01) ==
PROVIDERS: Emergency Provider Student in an Organized Health Care Education/Training Program; PCP Internal Medicine
DX: T75.4XXA Electrocution, initial encounter (principal); Y99.0 Civilian activity done for income or pay
CPT/HCPCS: 99281

== ENCOUNTER → 2023-01-21 13:17 | Outpatient (CLI) | payer OTHER, SELFPAY ==
[2023-01-21 14:31] LABS: Appearance Urine UA CLEAR; Bilirubin Urine UA NEGATIVE (NEGATIVE); Color Urine UA YELLOW; Glucose Urine UA NEGATIVE (Negative); Ketones Urine UA NEGATIVE (NEGATIVE); Leukocyte Esterase Urine UA 3+ (NEGATIVE); Nitrite Urine UA POSITIVE (Negative); Occult Blood Urine UA 3+ (Negative); Protein Urine UA 1+ (Negative); Specific Gravity Urine UA <=1.005 (1.000-1.035)
[2023-01-21 14:42] LABS: Amorphous Sediment Urine 1+; Bacteria Urine Few (2-10); Culture Indicated Urine Specimen Cultured; RBC Urine 5-10/HPF (0-5/HPF); Squamous Epithelial Cell Urine 1-5 /HPF (0-5/HPF); WBC Urine 5-10/HPF (0-5/HPF)
[2023-01-21 14:52] LABS: Add Manual Diff / Slide Review NO; Basophils Absolute Auto 0 /uL (0-100); Basophils Percent Auto 0.2 % (0-2); Eosinophils Absolute Auto 100 /uL (0-450); Eosinophils Percent Auto 1.3 % (2-4); Hematocrit 29.9 % (36-46); Lymphocytes Absolute Auto 1300 /uL (1100-4500); Lymphocytes Percent Auto 12.1 % (25-40); Mean Corpuscular HGB Conc 33.5 % (30-36); Mean Corpuscular Volume 80.7 fL (80-100); Monocytes Absolute Auto 600 /uL (0-900); Monocytes Percent Auto 6.1 % (3-14); Neutrophils Absolute Auto 8400 /uL (1500-7000); Neutrophils Percent Auto 80.3 % (50-75); Platelet Count 184 X10^3/uL (150-400); Red Cell Distribution Width 16.1 % (11.6-14.8); White Blood Cell Count 10.4 X10^3/uL (4.5-11.0)
[2023-01-21 15:25] LABS: BUN Creatinine Ratio 16.7 (6-22); Blood Urea Nitrogen 12 mg/dL (7-17); Calcium 8.5 mg/dL (8.4-10.2); Carbon Dioxide 31 mmol/L (22-32); Chloride 102 mmol/L (98-107); Estimated Glomerular Filt Rate > 60 mL/min (>60); Glucose 104 mg/dL (70-100); HEMOLYSIS < 15 (0-50); Potassium 3.6 mmol/L (3.4-5.1); Sodium 139 mmol/L (137-145)
[2023-01-21 16:46] LABS: Creatinine Urine Random 28.1 mg/dL; Protein (Total) Urine Random 40 mg/dL (0-12); Protein Creatinine Ratio Urine 1.42 GRAM/24H
== END ==
PROVIDERS: PCP Internal Medicine; Referring Provider Student in an Organized Health Care Education/Training Program; Visit Provider Student in an Organized Health Care Education/Training Program
DX: N05.9 Unspecified nephritic syndrome with unspecified morphologic changes (principal); D70.9 Neutropenia, unspecified; D63.1 Anemia in chronic kidney disease; N30.00 Acute cystitis without hematuria; R80.9 Proteinuria, unspecified
CPT/HCPCS: 36415; 80048; 81001; 82570; 84156; 85025; 87077; 87086; 87186

== ENCOUNTER 2023-01-24 22:07 | Emergency (ER) | payer OTHER, SELFPAY ==
[2023-01-24 22:30] VITALS: BP 131/63; PULSE 87; RESP 18; TEMP 36.7; O2SAT 100; BMI 22.8
--- NOTE | 2023-01-24 22:40 | ED.GENADULT ---
HPI - General Adult General Chief complaint: Urogenital-Female Stated complaint: Urinary retention- kidney stones couple days ago Time Seen by Provider: 01/24/23 22:31 Source: patient Mode of arrival: Family Vehicle History of Present Illness HPI narrative: Patient is a 29-year-old female. Has had issues with hematuria in the past. She is being followed by Nephrology. She has seen Urology in the past as well. A couple days ago she started to have blood in her urine again. She contacted her director business integration. She had labs drawn in provided a urine sample couple days ago. She was placed on antibiotics. She is also been taking Pyridium. The antibiotic that she is on is Cipro. She states that for the past couple days she continues to have discomfort. Quite a bit of urgency. Feeling like she is not emptying her bladder. She was told by the director business integration that potentially she is having a kidney stone but did not have any specific imaging studies done. No back pain. No fevers. She is tolerating oral intake. Related Data Home Medications Medication Instructions Recorded Confirmed rizatriptan 10 mg disintegrating 10 mg PO PRN Migraine Headache 10/18/20 07/02/22 tablet ondansetron HCl 4 mg tablet 4 mg PO Q8H 04/24/22 07/02/22 Previous Rx's Medication Instructions Recorded meloxicam 7.5 mg tablet (Mobic) 7.5 mg PO BID #20 tabs 10/18/20 pantoprazole 40 mg tablet,delayed 40 mg PO DAILY #20 tabs 10/18/20 release (Protonix) mupirocin 2 % topical ointment 1 applic topical TID #15 grams 05/12/21 diclofenac sodium 1 % topical gel 2 g topical QID PRN foot pain #100 01/03/22 grams meloxicam 7.5 mg tablet 7.5 mg PO DAILY PRN pain #20 tabs 01/03/22 albuterol sulfate 90 mcg/actuation 2 puff inhalation Q4-6H PRN 07/02/22 aerosol inhaler shortness of breath or wheezing #6.7 grams sulfamethoxazole 800 1 tab PO BID 3 days #6 tabs 01/24/23 mg-trimethoprim 160 mg tablet (Bactrim DS) Allergies Allergy/AdvReac Type Severity Reaction Status Date / Time nut - unspecified Allergy Anaphylaxis Verified 01/24/23 22:37 Review of Systems Constitutional Constitutional: Reports system reviewed and no additional complaints, except as documented Gastrointestinal Gastrointestinal: Reports system reviewed and no additional complaints, except as documented Genitourinary Genitourinary: Reports system reviewed and no additional complaints, except as documented Musculoskeletal Musculoskeletal: Reports system reviewed and no additional complaints, except as documented Integumentary/Breasts Skin/Breast: Reports system reviewed and no additional complaints, except as documented Hematologic/Lymphatic On Anticoagulants: No Patient History Medical History Eczema of external ear Hematuria History of kidney stones Hx of migraines Family History Grandmother Cancer CAD (coronary artery disease) Father Hearing impairment Hyperlipidemia Hypertension Mother Hypertension Social History marital status: number of children: 2 Smoking Status: Never smoker alcohol intake: current caffeine: Yes Type(s) of exercise: walking, weight lifting and running frequency: 3-4 times per week duration: > 90 minutes/day Smoking Status: Never smoker alcohol intake frequency: a few times a week Substance Use Type: does not use Exam Initial Vital Signs Initial Vital Signs: Vital Signs Temperature 98.0 F 01/24/23 22:30 Pulse Rate 87 01/24/23 22:30 Respiratory Rate 18 01/24/23 22:30 Blood Pressure 131/63 01/24/23 22:30 Pulse Oximetry 100 01/24/23 22:30 Oxygen Delivery Method Room Air 01/24/23 22:30 HENMT Head: normal to inspection and normocephalic Resp Effort & Inspection: normal respiratory effort Auscultation: clear to auscultation bilaterally Cardio Rate: regular rate Rhythm: regular rhythm GI Inspection: normal to inspection and non-distended Palpation: soft Back/Spine/Pelvis Back: No CVA tenderness Neuro General: patient alert, patient awake and moves all extremities Extrem General: capillary refill normal Course Orders Ordered: Discontinued Medications Trimethoprim/Sulfamethoxazole (Trimeth/Sulfa 160/800 (Ds) Tablet) 1 tab PO NOW ONE Stop: 01/24/23 22:45 Last Admin: 01/24/23 22:56 Dose: 1 tab Documented By: Vital Signs Vital signs: Vital Signs - 8 hr 01/24/23 22:30 01/24/23 23:53 Temperature 98.0 F 98.5 F Pulse Rate 87 86 Respiratory Rate 18 16 Blood Pressure 131/63 120/67 Pulse Oximetry 100 99 Oxygen Delivery Method Room Air Medical Decision Making Medical Records Medical records reviewed: Yes I reviewed the patient's medical records. MDM Narrative Medical decision making narrative: Review of the patient's medical records to include a urine microscopic from a couple days ago shows that she does have greater than 100,000 colony-forming units of E coli that has resistant to many bacteria to include Cipro which she is currently on. The bacteria is susceptible to Bactrim. Plan will be is to switch her to Bactrim. She was given a 1st dose here in the ER. She tolerated this well. A prescription was sent to the pharmacy of her choice. There is no indication for admission to the hospital or IV antibiotics. She was given return precautions. She expressed understanding and agreement. Discharge Plan Departure Patient Disposition: Home Clinical Impression: Urinary tract infection Instructions: DI for Urinary Tract Infection (UTI) Prescriptions: New sulfamethoxazole-trimethoprim [Bactrim DS] 800-160 mg tablet 1 tab PO BID 3 Days Qty: 6 0RF No Action mupirocin 2 % ointment 1 applic topical TID Qty: 15 0RF albuterol sulfate 90 mcg/actuation HFA aerosol inhaler 2 puff inhalation Q4-6H PRN (Reason: shortness of breath or wheezing) Qty: 6.7 0RF rizatriptan 10 mg tablet,disintegrating 10 mg PO PRN (Reason: Migraine Headache) meloxicam [Mobic] 7.5 mg tablet 7.5 mg PO BID Qty: 20 0RF pantoprazole [Protonix] 40 mg tablet,delayed release (DR/EC) 40 mg PO DAILY Qty: 20 0RF meloxicam 7.5 mg tablet 7.5 mg PO DAILY PRN (Reason: pain) Qty: 20 0RF diclofenac sodium 1 % gel 2 g topical QID PRN (Reason: foot pain) Qty: 100 0RF Rx Instructions: apply to single elbow, wrist or hand; for hand includes palm/fingers/back of hand ondansetron HCl 4 mg tablet 4 mg PO Q8H Referrals: Brook Carter ARNP [Primary Care Provider] - Stand Alone Forms: Patient Portal/API
[2023-01-24] MEDS: TRIMETH/SULFA 160/800 (DS) TABLET 1 TAB PO (22:56)
[2023-01-24 23:53] VITALS: BP 120/67; PULSE 86; RESP 16; TEMP 36.9; O2SAT 99
== END 2023-01-24 23:54 | disposition home or self-care (01) ==
PROVIDERS: Emergency Provider Emergency Medicine; PCP Internal Medicine
DX: N39.0 Urinary tract infection, site not specified (principal)
CPT/HCPCS: 51798; 99283

== ENCOUNTER → 2023-02-24 08:38 | Outpatient (CLI) | payer OTHER, SELFPAY ==
[2023-02-24 09:38] LABS: Appearance Urine UA CLEAR; Bilirubin Urine UA NEGATIVE (NEGATIVE); Color Urine UA YELLOW; Glucose Urine UA NEGATIVE (Negative); Ketones Urine UA NEGATIVE (NEGATIVE); Leukocyte Esterase Urine UA TRACE (NEGATIVE); Nitrite Urine UA NEGATIVE (Negative); Occult Blood Urine UA 2+ (Negative); Protein Urine UA 1+ (Negative)
[2023-02-24 09:46] LABS: Add Manual Diff / Slide Review NO; Basophils Absolute Auto 0 /uL (0-100); Basophils Percent Auto 0.6 % (0-2); Eosinophils Absolute Auto 100 /uL (0-450); Eosinophils Percent Auto 2.1 % (2-4); Hematocrit 36.5 % (36-46); Lymphocytes Absolute Auto 1600 /uL (1100-4500); Lymphocytes Percent Auto 24.6 % (25-40); Mean Corpuscular Hemoglobin 26.9 PG (26-34); Mean Corpuscular Volume 81.3 fL (80-100); Monocytes Absolute Auto 500 /uL (0-900); Monocytes Percent Auto 8.4 % (3-14); Neutrophils Absolute Auto 4200 /uL (1500-7000); Neutrophils Percent Auto 64.3 % (50-75); Platelet Count 201 X10^3/uL (150-400); Red Blood Cell Count 4.48 X10^6/uL (4.0-5.2); Red Cell Distribution Width 16.8 % (11.6-14.8); White Blood Cell Count 6.5 X10^3/uL (4.5-11.0)
[2023-02-24 09:51] LABS: Bacteria Urine Few (2-10); Culture Indicated Urine Specimen Cultured; RBC Urine 10-30/HPF (0-5/HPF); Squamous Epithelial Cell Urine 5-10 /HPF (0-5/HPF); WBC Urine 1-5/HPF (0-5/HPF)
[2023-02-24 10:16] LABS: Creatinine Urine Random 80.9 mg/dL; Protein (Total) Urine Random 42 mg/dL (0-12); Protein Creatinine Ratio Urine 0.51 GRAM/24H
[2023-02-24 10:22] LABS: HEMOLYSIS < 15 (0-50); Iron 44 ug/dL (37-170)
[2023-02-24 10:31] LABS: Percent Iron Saturation 9 % (15-50); Total Iron Binding Capacity 464 ug/dL (265-497); Transferrin 363 mg/dL (206-381)
[2023-02-24 10:50] LABS: Ferritin 6 ng/mL (6-137)
== END ==
PROVIDERS: PCP Internal Medicine; Referring Provider Student in an Organized Health Care Education/Training Program; Visit Provider Student in an Organized Health Care Education/Training Program
DX: D70.9 Neutropenia, unspecified (principal); D63.1 Anemia in chronic kidney disease; N30.00 Acute cystitis without hematuria; R80.9 Proteinuria, unspecified; D50.0 Iron deficiency anemia secondary to blood loss (chronic)
CPT/HCPCS: 36415; 81001; 82570; 82728; 83540; 83550; 84156; 85025; 87086

== ENCOUNTER → 2023-08-21 12:26 | Outpatient (CLI) | payer OTHER, SELFPAY ==
--- NOTE | 2023-08-21 12:28 | DI.US.S_ITS ---
PROCEDURE: US PELVIC COMPLETE INDICATIONS: Frequency of micturition TECHNIQUE: Real-time scanning was performed of the pelvic organs, with image documentation. Additional endovaginal scanning was necessary due to incomplete visualization of the adnexal and endometrial structures by transabdominal scanning. COMPARISON: None. FINDINGS: Uterus: Uterus is retroverted and normal in size at 8 x 5.6 x 4.5 cm. The myometrium is homogeneous. The endometrium measures 5 mm combined thickness. No abnormal vascularity can be seen along the endometrial stripe. Incidental note is made of nabothian cysts. There is a 1.2 cm intramural fibroid seen on the right anteriorly. Ovaries: The right ovary measures 3.2 x 1.7 x 1.6 cm, with a calculated ovarian volume of 4.6 cc. The left ovary measures 2.8 x 1.8 x 1.5 cm, with a calculated ovarian volume of 7.6 cc. The ovaries have a normal sonographic appearance, with note made of a dominant follicle within the left ovary measuring up to 1.2 cm, which is considered to be within physiologic limits. Less than 12 follicles can be seen in each ovary. No adnexal masses are seen. Other: A mild amount of free pelvic fluid is seen, which is considered to be within physiologic limits. In this patient with this given history, scrutiny is given to the region between the urethra and the vagina. No sonographic abnormalities are seen. IMPRESSION: No imaging explanation is found for this patient's presenting symptoms. We strive to produce accurate, complete, and clear reports of imaging services. To assist us in improving patient care, this report was composed using standard report templates and voice recognition software. Therefore, it may contain abnormal punctuation, insertions and/or omissions. Occasional wrong-word or sound-alike substitutions may occur. Though we review the report and make efforts to correct it, we do recommend that the report be read carefully in proper context to recognize any text inaccuracies. Dictated by: Nam Jordan M.D. on 08/21/2023 at 12:49 Approved by: Nam Jordan M.D. on 08/21/2023 at 12:50
== END ==
PROVIDERS: PCP Internal Medicine; Referring Provider Internal Medicine; Visit Provider Internal Medicine
DX: D25.1 Intramural leiomyoma of uterus (principal); N88.8 Other specified noninflammatory disorders of cervix uteri; R35.0 Frequency of micturition; R19.00 Intra-abdominal and pelvic swelling, mass and lump, unspecified site
CPT/HCPCS: 76830; 76856

== ENCOUNTER → 2023-08-27 09:20 | Outpatient (CLI) | payer OTHER, SELFPAY ==
[2023-08-27 10:14] LABS: Hematocrit 34.8 % (36-46); Hemoglobin 11.5 g/dL (12.0-16.0); Mean Corpuscular Hemoglobin 26.5 PG (26-34); Mean Corpuscular Volume 80.3 fL (80-100); Platelet Count 221 X10^3/uL (150-400); Red Blood Cell Count 4.33 X10^6/uL (4.0-5.2); Red Cell Distribution Width 15.2 % (11.6-14.8); White Blood Cell Count 7.6 X10^3/uL (4.5-11.0)
[2023-08-27 10:29] LABS: Appearance Urine UA CLOUDY; Bilirubin Urine UA NEGATIVE (NEGATIVE); Color Urine UA YELLOW; Glucose Urine UA NEGATIVE (Negative); Ketones Urine UA NEGATIVE (NEGATIVE); Leukocyte Esterase Urine UA 2+ (NEGATIVE); Nitrite Urine UA NEGATIVE (Negative); Occult Blood Urine UA 3+ (Negative); Protein Urine UA TRACE (Negative); Urobilinogen Urine UA 0.2 E.U./dL (0.2)
[2023-08-27 10:36] LABS: RBC Urine 5-10/HPF (0-5/HPF); Urine Volume 10mL (spun); WBC Urine 30-100/HPF (0-5/HPF); pH Urine UA 6.5 (4.5-8.0)
[2023-08-27 10:37] LABS: Bacteria Urine Many (>30); Culture Indicated Urine Specimen Cultured; Squamous Epithelial Cell Urine 10-30 /HPF (0-5/HPF)
[2023-08-27 10:47] LABS: BUN Creatinine Ratio 25.3 (6-22); Blood Urea Nitrogen 20 mg/dL (7-17); Calcium 9.1 mg/dL (8.4-10.2); Carbon Dioxide 27 mmol/L (22-32); Chloride 103 mmol/L (98-107); Estimated Glomerular Filt Rate > 60 mL/min (>60); Glucose 92 mg/dL (70-100); HEMOLYSIS < 15 (0-50); Potassium 3.7 mmol/L (3.4-5.1); Sodium 138 mmol/L (137-145)
[2023-08-27 10:53] LABS: Creatinine Urine Random 326.1 mg/dL; Protein (Total) Urine Random 21 mg/dL (0-12); Protein Creatinine Ratio Urine 0.06 GRAM/24H
== END ==
LOC: LAB 09:23
PROVIDERS: PCP Internal Medicine; Referring Provider Student in an Organized Health Care Education/Training Program; Visit Provider Student in an Organized Health Care Education/Training Program
DX: N05.9 Unspecified nephritic syndrome with unspecified morphologic changes (principal); D70.9 Neutropenia, unspecified; D63.1 Anemia in chronic kidney disease; N30.00 Acute cystitis without hematuria; R80.9 Proteinuria, unspecified
CPT/HCPCS: 36415; 80048; 81001; 82570; 84156; 85027; 87086

== ENCOUNTER → 2023-09-21 15:55 | Outpatient (CLI) | payer OTHER, SELFPAY ==
[2023-09-21 16:56] LABS: Appearance Urine UA CLEAR; Bilirubin Urine UA NEGATIVE (NEGATIVE); Color Urine UA YELLOW; Glucose Urine UA NEGATIVE (Negative); Ketones Urine UA 1+ (NEGATIVE); Leukocyte Esterase Urine UA NEGATIVE (NEGATIVE); Nitrite Urine UA POSITIVE (Negative); Occult Blood Urine UA 2+ (Negative); Protein Urine UA TRACE (Negative)
[2023-09-21 17:11] LABS: pH Urine UA 6.5 (4.5-8.0)
[2023-09-21 17:12] LABS: Amorphous Sediment Urine 1+; Bacteria Urine Few (2-10); Culture Indicated Urine Specimen Cultured; RBC Urine 10-30/HPF (0-5/HPF); Squamous Epithelial Cell Urine 5-10 /HPF (0-5/HPF); Urine Volume 10mL (spun); WBC Urine 5-10/HPF (0-5/HPF)
== END ==
PROVIDERS: PCP Internal Medicine; Referring Provider Student in an Organized Health Care Education/Training Program; Visit Provider Student in an Organized Health Care Education/Training Program
DX: D70.9 Neutropenia, unspecified (principal); D63.1 Anemia in chronic kidney disease
CPT/HCPCS: 81001; 87086

== ENCOUNTER 2023-09-22 15:10 | Emergency (ER) | payer OTHER, SELFPAY ==
[2023-09-22 15:23] VITALS: BP 125/90; PULSE 81; RESP 18; TEMP 37; O2SAT 100; BMI 23.0
[2023-09-22 16:15] LABS: Urine Volume 10mL (spun)
[2023-09-22 16:17] LABS: Bacteria Urine Few (2-10); Culture Indicated Urine Cult Not Indicated; RBC Urine 10-30/HPF (0-5/HPF); Squamous Epithelial Cell Urine 0-1 /HPF (0-5/HPF); WBC Urine 0-1/HPF (0-5/HPF)
== END 2023-09-22 18:38 | disposition left against medical advice (07) ==
PROVIDERS: Emergency Provider Emergency Medicine; PCP Internal Medicine; Referring Provider Internal Medicine
DX: R07.81 Pleurodynia (principal); V89.2XXA Person injured in unspecified motor-vehicle accident, traffic, initial encounter
CPT/HCPCS: 81003; 81015; 81025; 99282

== ENCOUNTER → 2023-09-24 17:43 | Outpatient (CLI) | payer OTHER, SELFPAY ==
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
== END ==
LOC: RAD 17:45
PROVIDERS: PCP Internal Medicine; Referring Provider Internal Medicine; Visit Provider Internal Medicine
DX: M50.321 Other cervical disc degeneration at C4-C5 level (principal); M54.6 Pain in thoracic spine
CPT/HCPCS: 72050; 72070

== ENCOUNTER → 2023-09-28 19:21 | Outpatient (CLI) | payer OTHER, SELFPAY ==
--- NOTE | 2023-09-28 19:23 | DI.MRI.S_ITS ---
PROCEDURE: MR CERVICAL SPINE WO CON INDICATIONS: Radiculopathy, cervical region TECHNIQUE: Noncontrast sagittal T1 spin echo and T2 fast spin echo, sagittal STIR, foraminal oblique sagittal T2 fast spin echo, and axial gradient echo or T2 fast spin echo through the cervical spine. COMPARISON: None. FINDINGS: Image quality: Excellent. Alignment and Curvature: There is normal bony alignment. Bone Marrow: Marrow demonstrates normal overall signal. Spinal Cord: Visualized spinal cord has normal size and signal. No cerebellar tonsillar herniation. Paraspinous Soft Tissues: No paravertebral masses. Prevertebral soft tissues are normal in thickness. C2-C3: Normal appearance. C3-C4: Normal appearance. C4-C5: Mild disc herniation, with slight effacement of the spinal cord. Mild spinal canal narrowing. C5-C6: Moderate disc herniation, with effacement of the spinal cord and mild spinal canal narrowing. C6-C7: Normal appearance. C7-T1: Normal appearance. IMPRESSION: Disc herniation at C4-5 and C5-6, causing effacement of the spinal cord and mild spinal canal narrowing. Dictated by: Davis Milner M.D. on 09/29/2023 at 9:06 Approved by: Davis Milner M.D. on 09/29/2023 at 9:09
== END ==
LOC: MRI 19:22
PROVIDERS: PCP Internal Medicine; Referring Provider Registered Nurse; Visit Provider Registered Nurse
DX: M50.121 Cervical disc disorder at C4-C5 level with radiculopathy (principal)
CPT/HCPCS: 72141

== ENCOUNTER 2023-11-26 06:41 | Day surgery (SDC) | payer OTHER, SELFPAY ==
[2023-11-05 10:54] VITALS: BMI 24.3
[2023-11-26] VITALS (7 sets, daily range): BP systolic 99–107; BP diastolic 57–67; PULSE 72–87; RESP 16; TEMP 36.2–36.4; O2SAT 98; BMI 24.3
--- NOTE | 2023-11-26 | PATH_ITS ---
[facility] Accession Number: [id number] No. of containers..01 Tissue . 01 Material submitted: . cervix - LEEP . 01 Diagnosis: CERVIX, LEEP: Cervical transformation zone with chronic, mild active inflammation and focal mild squamous atypia, consistent with low-grade squamous intraepithelial lesion (RICARDO-1). No high-grade squamous intraepithelial lesion identified. No evidence of malignancy. [facility] 12/01/2023 1158 Local . 01 Electronically signed: . Peter Cuello MD, PhD, Pathologist NPI- [id number] . 01 Gross description: . Received in formalin with two patient identifiers and LEEP, is a 1.5 x 1.4 x 1.4 cm intact cervical cone that has a smooth white, diffusely hemorrhagic mucosa and a distinct endocervical canal. The endocervical margin is inked blue and the cauterized margin is inked black. The specimen is not oriented. Specimen is entirely and sequentially submitted in cassettes A1-A4. ([id number]) /MRV 12/01/2023 1159 Local . 01 Pathologist provided ICD-10: N87.0 . 01 CPT . 734215 Performed at: 01 [facility] [address] [place] [address] [address], [place], [place] [id number] MD Manuel Serrano MD Phone: [phone]
[2023-11-26] MEDS: SCOPOLAMINE 1 PATCH TOP (06:57)
--- NOTE | 2023-11-26 07:50 | PM.HP.1 ---
History of Present Illness History of Present Illness Chief complaint: LEEP Procedure Narrative: 38yo F presenting today for LEEP procedure due to RICARDO 2 (at 6 o'clock), preceded by ASCUS/HPV+ pap. She reports remote hx of abnormal pap screening 15yrs ago, with colposcopy. Denies hx of LEEP. [facility] Medical History (Updated 11/26/23 @ 07:52 by Brandie Webb DO) RICARDO II (cervical intraepithelial neoplasia II) Hematuria Hx of migraines History of kidney stones Eczema of external ear Family History Grandmother Cancer CAD (coronary artery disease) Father Hearing impairment Hyperlipidemia Hypertension Mother Hypertension Social History marital status: number of children: 2 household members: spouse Smoking Status: Never smoker alcohol intake: current caffeine: Yes Type(s) of exercise: walking, weight lifting and running frequency: 3-4 times per week duration: > 90 minutes/day Meds Home Medications and Allergies Home Medications Medication Instructions Recorded Confirmed Type rizatriptan 10 mg disintegrating 10 mg PO PRN Migraine Headache 10/18/20 08/27/23 History tablet mupirocin 2 % topical ointment 1 applic topical TID #15 grams 05/12/21 08/27/23 Rx diclofenac sodium 1 % topical gel 2 g topical QID PRN foot pain #100 01/03/22 08/27/23 Rx grams ondansetron HCl 4 mg tablet 4 mg PO Q8H 04/24/22 11/26/23 History albuterol sulfate 90 mcg/actuation 2 puff inhalation Q4-6H PRN 07/02/22 11/26/23 Rx aerosol inhaler shortness of breath or wheezing #6.7 grams Allergies Allergy/AdvReac Type Severity Reaction Status Date / Time nut - unspecified Allergy Severe Anaphylaxis Verified 11/26/23 06:35 Sulfa (Sulfonamide Allergy Mild Rash Verified 11/26/23 06:35 Antibiotics) Review of Systems Review of Systems ROS: Yes All systems reviewed with the patient and are negative except as otherwise documented Exam Vital Signs (past 8 hours): - 11/26/23 07:08 Temperature 97.6 F Pulse Rate 87 Respiratory Rate 16 Blood Pressure 107/65 Pulse Oximetry 98 Oxygen Delivery Method Room Air Oxygen Delivery Method Room Air Const General: healthy appearing, comfortable and No acute distress Resp Effort & Inspection: normal respiratory effort and able to speak in complete sentences Skin General: no rashes or lesions noted Psych Mood: congruent mood Affect: normal affect Assessment & Plan Assessment and plan (1) RICARDO II (cervical intraepithelial neoplasia II): Status: Acute Assessment & Plan narrative: 38yo F with hx of RICARDO II here today for LEEP. -discussed preop instructions and postop expectations -plan for same day procedure -will call pt with results when available Time Spent With Patient Time with patient: less than 30 minutes
[2023-11-26] MEDS: LIDOCAINE 1% W/EPI 20 ML INJ (08:13)
[2023-11-26] MEDS: POTASSIUM IODIDE/IODINE 473 ML SOLUTION TOP (08:14)
--- NOTE | 2023-11-26 08:26 | PM.OP.1 ---
Operative Date/Time/Diagnoses Date of procedure: 11/26/23 Time of procedure: 08:00 Pre-op diagnosis: Cervical intraepithelial neoplasia, grade 2 Post-op diagnosis: same Procedure & Clinicians Procedure: Loop electrode excisional procedure Same procedure as scheduled: Yes Indications: 38yo F with CIN2 on recent colposcopy. Surgeon: Brandie Webb Click Yes if Unassisted: Yes Anesthesia Type: MAC +/- and Sedation Operative Notes Findings: Normal appearing vulva, vagina, and cervix. Squamocolumnar junction visible circumferentially. Specimen(s): other (LEEP) Estimated Blood Loss (mL): 5 Blood products transfused: none Procedure in detail: The risks, benefits, indications and alternatives of the procedure were reviewed with the patient and informed consent was obtained. The pt was taken to the operating room where anesthesia was obtained without difficulty. The pt was then placed in the low lithotomy position using gel-padded Noe stirrups. SCDs were placed bilaterally for VTE prophylaxis. The pt was then prepped and draped in the sterile fashion. A sterile, coated speculum was placed into the vagina and the cervix was visualized. A cervical block was then performed using approximately 7cc of 1% lidocaine with epinephrine. A 1.0 x 0.5cm LEEP radius electrode was used to excise the ectocervix. All tissues were sent to pathology for review. Hemostasis was acheived with electrocautery using the Roller Ball electrode. Monsel's solution was then applied with excellent hemostasis noted. All instruments were then removed from the vagina. At the completion of the case the sponge and needle counts were correct x 2. The patient tolerated the procedure well and was taken to the PACU in stable condition. Complications: none Post-operative Condition: stable Disposition: PACU Plan for aftercare: Discharge home once meeting PACU criteria.
[2023-11-26] MEDS: METOCLOPRAMIDE 10 MG/2 ML INJ IV (09:09)
== END 2023-11-26 09:50 | disposition home or self-care (01) ==
PROVIDERS: PCP Internal Medicine; Referring Provider Student in an Organized Health Care Education/Training Program; Visit Provider Student in an Organized Health Care Education/Training Program
PROC: 0UBC7ZZ Excision of Cervix, Via Natural or Artificial Opening (ICD-10-PCS; CPT 57522; principal; 2023-11-26 07:45)
DX: N87.1 Moderate cervical dysplasia (principal)
CPT/HCPCS: 57522; J1100; J1170; J1885; J2250; J2405; J2704; J2765; J3010

== ENCOUNTER → 2024-04-29 08:58 | Outpatient (CLI) | payer OTHER, SELFPAY ==
--- NOTE | 2024-04-29 08:59 | DI.RAD.S_ITS ---
PROCEDURE: XR FOOT LT MIN 3V INDICATIONS: Left foot pain TECHNIQUE: 3 views of the foot were acquired. COMPARISON: [facility], , XR FOOT LT MIN 3V, 01/03/2022, 14:24. FINDINGS: Bones: No fractures or dislocations. No suspicious bony lesions. Soft tissues: No tibiotalar joint effusion. Achilles tendon appears normal. IMPRESSION: No acute bony abnormality. Approved by: Jamie Woods M.D. on 04/29/2024 at 9:55
--- NOTE | 2024-04-29 08:59 | DI.RAD.S_ITS ---
PROCEDURE: XR ANKLE LT MIN 3V INDICATIONS: Left ankle pain TECHNIQUE: 3 views of the ankle were acquired. COMPARISON: None. FINDINGS: Bones: No fractures or dislocations. Ankle mortise is normally aligned. No suspicious bony lesions. Soft tissues: No tibiotalar joint effusion. Achilles tendon appears normal. IMPRESSION: No acute bony abnormality or significant effusion. Approved by: Jamie Woods M.D. on 04/29/2024 at 9:49
== END ==
PROVIDERS: PCP Internal Medicine; Referring Provider Registered Nurse; Visit Provider Registered Nurse
DX: M25.572 Pain in left ankle and joints of left foot (principal)
CPT/HCPCS: 73610; 73630

== ENCOUNTER → 2024-05-10 16:30 | Outpatient (CLI) | payer OTHER, SELFPAY ==
--- NOTE | 2024-05-10 16:33 | DI.RAD.S_ITS ---
PROCEDURE: XR ANKLE LT MIN 3V INDICATIONS: ANKLE STRAIN TECHNIQUE: 3 views of the ankle were acquired. COMPARISON: [facility], CR, XR ANKLE LT MIN 3V, 04/29/2024, 9:00. FINDINGS: Bones: No fractures or dislocations. Ankle mortise is normally aligned. No suspicious bony lesions. Soft tissues: Small tibiotalar joint effusion. Achilles tendon appears normal. IMPRESSION: No acute bony abnormality. Small joint effusion. Dictated by: Davis Milner M.D. on 05/10/2024 at 20:54 Approved by: Davis Milner M.D. on 05/10/2024 at 20:55
--- NOTE | 2024-05-10 16:34 | DI.RAD.S_ITS ---
PROCEDURE: XR HAND RT MIN 3V INDICATIONS: HAND PAIN TECHNIQUE: 3 views of the hand(s) acquired. COMPARISON: None. FINDINGS: Bones: No fractures or dislocations. Carpal bones are normally aligned. No suspicious bony lesions. Soft tissues: No suspicious soft tissue calcifications. IMPRESSION: No acute bony abnormality. Dictated by: Davis Milner M.D. on 05/10/2024 at 20:55 Approved by: Davis Milner M.D. on 05/10/2024 at 20:56
== END ==
LOC: RAD 16:31
PROVIDERS: PCP Internal Medicine; Referring Provider Internal Medicine; Visit Provider Internal Medicine
DX: M25.472 Effusion, left ankle (principal); S96.912A Strain of unspecified muscle and tendon at ankle and foot level, left foot, initial encounter; M79.641 Pain in right hand
CPT/HCPCS: 73130; 73610

== ENCOUNTER → 2024-06-03 09:13 | Outpatient (CLI) | payer OTHER, SELFPAY ==
--- NOTE | 2024-06-03 09:14 | DI.MRI.S_ITS ---
PROCEDURE: MR HEAD/BRAIN WO/W CON INDICATIONS: HEADACHES/TRIGEMINAL PARASTHESIA TECHNIQUE: Noncontrast axial T1 spin echo, axial T2 fast spin echo, sagittal and axial FLAIR, coronal T2 fast spin echo, axial gradient echo, axial diffusion and ADC through the brain. After the administration of contrast, axial and coronal and sagittal 3D VIBE or T1 spin echo with fat saturation through the brain. COMPARISON: None. FINDINGS: Trigeminal: The left superior cerebellar artery is draped across the superior surface of the cisternal component left trigeminal nerve near its entry into Meckel's cave. Size and imaging characteristics of both trigeminal nerves are within normal limits and symmetric. No enhancement. CSF Spaces: Basal cisterns are patent. No extra-axial fluid collections. Ventricles are normal in size and shape. Brain: No intracranial masses or hemorrhage. Cain/white matter interface is normal. Brainstem appears normal. Diffusion-weighted sequence is unremarkable without evidence of acute infarct. Normal intravascular flow voids are present. Skull and face: Calvarial marrow is normal in signal. Orbits appear normal. Sinuses: Sinuses and mastoids appear clear. IMPRESSION: Left superior cerebellar artery is in contact with the distal cisternal left trigeminal nerve raising the possibility of neurovascular compression. No atrophy or signal changes. Otherwise, unremarkable MRI of the brain without evidence of acute infarct, hemorrhage or mass lesion. Approved by: Jamie Woosd M.D. on 06/03/2024 at 17:01
== END ==
LOC: MRI 09:13
PROVIDERS: PCP Internal Medicine; Referring Provider Internal Medicine; Visit Provider Internal Medicine
DX: R41.3 Other amnesia (principal); G50.9 Disorder of trigeminal nerve, unspecified; H53.142 Visual discomfort, left eye; R51.9 Headache, unspecified; V89.2XXD Person injured in unspecified motor-vehicle accident, traffic, subsequent encounter
CPT/HCPCS: 70553; A9579

== ENCOUNTER → 2024-08-15 07:31 | Outpatient (CLI) | payer OTHER, SELFPAY ==
[2024-08-15 08:03] LABS: Appearance Urine UA SL CLOUDY; Color Urine UA Yellow
[2024-08-15 08:04] LABS: Bacteria Urine Few (2-10); Culture Indicated Urine Specimen Cultured; RBC Urine None Seen (0-5/HPF); Squamous Epithelial Cell Urine 1-5 /HPF (0-5/HPF); Urine Volume Low Vol <10mL unspun; WBC Urine 0-1/HPF (0-5/HPF)
[2024-08-15 08:05] LABS: Hematocrit 35.5 % (36-46); Hemoglobin 11.6 g/dL (12.0-16.0); Mean Corpuscular HGB Conc 32.8 % (30-36); Mean Corpuscular Hemoglobin 26.3 PG (26-34); Mean Corpuscular Volume 80.2 fL (80-100); Platelet Count 215 X10^3/uL (150-400); Red Blood Cell Count 4.42 X10^6/uL (4.0-5.2); Red Cell Distribution Width 15.7 % (11.6-14.8); White Blood Cell Count 7.8 X10^3/uL (4.5-11.0)
[2024-08-15 08:07] LABS: BUN Creatinine Ratio 22.1 (6-22); Blood Urea Nitrogen 15 mg/dL (7-17); Calcium 9.3 mg/dL (8.4-10.2); Carbon Dioxide 26 mmol/L (22-32); Chloride 103 mmol/L (98-107); Estimated Glomerular Filt Rate > 60 mL/min (>60); Glucose 98 mg/dL (70-100); HEMOLYSIS < 15 (0-50); Potassium 3.8 mmol/L (3.4-5.1); Sodium 137 mmol/L (137-145)
[2024-08-15 08:08] LABS: Creatinine Urine Random 247.44 mg/dL; Protein (Total) Urine Random 40 mg/dL (0-12); Protein Creatinine Ratio Urine 0.16 GRAM/24H
== END ==
PROVIDERS: PCP Internal Medicine; Referring Provider Student in an Organized Health Care Education/Training Program; Visit Provider Student in an Organized Health Care Education/Training Program
DX: D70.9 Neutropenia, unspecified (principal); D63.1 Anemia in chronic kidney disease; N30.00 Acute cystitis without hematuria; R80.9 Proteinuria, unspecified; N85.9 Noninflammatory disorder of uterus, unspecified
CPT/HCPCS: 36415; 80048; 81001; 82570; 84156; 85027; 87086

== ENCOUNTER → 2024-09-06 14:31 | Outpatient (CLI) | payer OTHER, SELFPAY ==
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
== END ==
LOC: RAD 14:33
PROVIDERS: PCP Registered Nurse; Referring Provider Psychiatry & Neurology Neurology; Visit Provider Psychiatry & Neurology Neurology
DX: R68.84 Jaw pain (principal)
CPT/HCPCS: 70330

== ENCOUNTER → 2024-09-22 09:13 | Outpatient (CLI) | payer OTHER, SELFPAY ==
--- NOTE | 2024-09-22 09:16 | DI.MRI.S_ITS ---
PROCEDURE: MR LUMBAR SPINE WO CON INDICATIONS: CHRONIC MIDLINE LOW BACK PAIN TECHNIQUE: Noncontrast sagittal T1 spin echo and T2 fast echo, sagittal STIR, and T2 fast spin echo through the lumbar spine. In cases with scoliosis, additional coronal T2 fast spin echo may be performed. COMPARISON: None. FINDINGS: Image quality: Excellent. Alignment and Curvature: There is normal bony alignment. Bone Marrow: Marrow is of normal overall signal. No acute vertebral body compression fractures. Spinal Cord: Conus medullaris terminates at the L1 level. Visualized cord demonstrates normal signal and size. Paraspinous Soft Tissues: No paravertebral masses. T12-L1: Normal appearance. L1-L2: Normal appearance. L2-L3: Normal appearance. L3-L4: Normal appearance. L4-L5: Normal appearance. L5-S1: Normal appearance. IMPRESSION: Normal MRI of the lumbar spine Approved by: Jamie Woods M.D. on 09/22/2024 at 13:05
== END ==
PROVIDERS: PCP Family Medicine; Referring Provider Family Medicine; Visit Provider Family Medicine
DX: M54.50 Low back pain, unspecified (principal); G89.29 Other chronic pain
CPT/HCPCS: 72148

== ENCOUNTER → 2024-11-17 07:46 | Outpatient (CLI) | payer OTHER, SELFPAY | LOC: PHYS 07:46 | PROVIDERS: Family Provider Family Medicine; PCP Family Medicine; Referring Provider Family Medicine; Visit Provider Family Medicine | DX: R20.2 Paresthesia of skin (principal) | CPT/HCPCS: 95886; 95910 ==

== ENCOUNTER 2024-12-07 11:30 | Outpatient (RCR) | payer OTHER, SELFPAY ==
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
== END 2024-12-16 13:48 | disposition home or self-care (01) ==
LOC: SP 11:30
PROVIDERS: Family Provider Family Medicine; PCP Family Medicine; Referring Provider Family Medicine; Visit Provider Family Medicine
DX: F07.81 Postconcussional syndrome (principal); R47.1 Dysarthria and anarthria
CPT/HCPCS: 92507; 96125